=== PATIENT | female | born 1985 | race Caucasian/White ===

== ENCOUNTER 2017-05-20 17:10 | Emergency (ER) | payer SELFPAY ==
[~2017-05-20] VITALS: Ht 165.1 cm; Wt 106.4 kg
[2017-05-20 17:26] VITALS: BP 155/77; PULSE 103; TEMP 99.4
[2017-05-20] MEDS ORDERED: CEPHALEXIN500 M1 PO (17:48)
== END 2017-05-20 18:02 | disposition home or self-care (01) ==
LOC: COL.ER 17:10
DX: J02.9 Acute pharyngitis, unspecified (principal); F17.210 Nicotine dependence, cigarettes, uncomplicated